=== PATIENT | male | born 1960 | race Caucasian/White ===

== ENCOUNTER 2016-09-26 21:33 | Inpatient (IN) | payer OTHER ==
[~2016-09-26] VITALS: Ht 175.3 cm; Wt 81.6 kg
--- NOTE | ~2016-09-26 | PA ---
Unit #: [id number] #: [id number] Patient: JASSON FISCHER [id number] [facility] [address] [place] [address] [id number] MR#: [id number] NAME: JASSON FISCHER. ROOM: P209 Age: 56 Sex: M Admission Date: 09/27/2016 : 1960 Date of Assessment: Attending Physician: Tan Thomas M.D. Admitting Physician: Tan Thomas M.D. Primary Care Physician: Primary Care Physician No PSYCHIATRIC ASSESSMENT INFORMANTS The patient reliability, fair informant and chart reliability, good. CHIEF COMPLAINT Suicidal ideation and suicide attempt. HISTORY OF PRESENT ILLNESS Mr. Jasson Fischer is a 56-year-old male, presented with the above-mentioned complaint. The patient presented with suicidal ideation, suicide attempt on 09/25/2016. The patient reported overdosed and medically cleared. The patient denied any homicidal ideation. Denied any psychotic symptoms. Reported abusing Dilaudid off and on from the street 8 mg IV. The patient reported opioid use, age of onset 54, mainly Dilaudid. Longest period of sobriety, none. The patient reported history of blackout, history of withdrawal symptom, and IV drug abuse. No history of any HIV or hepatitis. The patient reported withdrawal symptoms such as abdominal cramping, muscle cramping, diaphoresis, irritability, and nervousness. The patient reported suicidal ideation, sad, and depressed. The patient has 12th grade of education, lives with his , currently on fixed income. He has a history of chronic pain. Sleeping 2 hours. Suicide attempt by taking overdose. Needing inpatient admission at this time for psychiatric stabilization. PAST PSYCHIATRIC HISTORY Unremarkable for any previous treatment. FAMILY HISTORY AND SOCIAL HISTORY The patient lives with his , good support system. No history of abuse. No legal charges. MEDICAL HISTORY Remarkable for history of chronic pain. Musculoskeletal; muscle strength and tone, no atrophy or abnormal movement. Gait normal. MEDICATION HISTORY The patient is currently on baclofen, gabapentin, Percocet, and steroid injections. ALLERGIES No known drug allergies. SUBSTANCE ABUSE HISTORY Please see above. Unit #: [id number] #: [id number] Patient: JASSON FISCHER REVIEW OF SYSTEMS HEENT: Eyes, clear. Ears, nose, mouth, and throat; clear. CARDIOVASCULAR: Unremarkable. RESPIRATORY: Unremarkable. GI: Unremarkable. : Unremarkable. SKIN: Unremarkable. LYMPH NODE: Unremarkable. NEUROLOGIC: Unremarkable. ENDOCRINE: Unremarkable. HEMATOLOGIC: Unremarkable. ALLERGIC/IMMUNOLOGIC: Unremarkable. MUSCULOSKELETAL: Muscle strength and tone, no atrophy or abnormal movement. Gait normal. MENTAL STATUS EXAMINATION CONSTITUTIONAL: Measurement of vital signs; temperature 97.9, heart rate 63, respiratory rate 17, and blood pressure 119/69. Height 5 feet 9 inches and weight 180 pounds. GENERAL APPEARANCE: The patient dressed casually. The patient did not show any facial deformity. MUSCULOSKELETAL: Please see above. PSYCHIATRIC EXAMINATION Description of speech; regular rate, normal volume, normal articulation, and coherent. Description of thought process, goal directed. Description of association, intact. Description of abnormal psychotic thinking; the patient denied any hallucinations or delusions, but mood lability, suicidal ideation, and depression. Denied any homicidal ideation. Description of the patient's judgment: Concerning everyday activity, poor. Social situation, poor. Concerning psychiatric condition, poor. Complete mental examination; oriented in time, place, and person. Recent and remote memory, fair. Attention span and concentration, fair. Language, able to name object and repeat phrases. Fund of knowledge, aware of current event and passive vocabulary intact. Mood and affect, sad and dysphoric. Insight and judgment, fair to poor. ASSETS AND LIABILITIES Assets, the patient is articulate and able to take care of his ADL. Liability, history of depression and substance abuse. ADMITTING DIAGNOSES Psychiatric: Major depressive disorder, recurrent, severe, F33.2 and opioid use disorder, severe, F11.20. Secondary diagnosis: Deferred. Medical diagnosis: Chronic pain. Stressors: Psychosocial stressors. PSYCHIATRIC PLAN AND TREATMENT GOAL AND DISCHARGE PLAN 1. Advised to admit the patient on the inpatient unit. Provide safe, supportive, and structured environment. 2. Ordered labs; CBC, CMP, UA, and UDS. 3. Precaution for aggression and precaution for self-harm. Unit #: [id number] #: [id number] Patient: JASSON FISCHER 4. The patient to attend all the programing on the inpatient unit. Detox protocol and detox monitoring. Plan to consider adding Celexa 40 mg at bedtime for depression. Treatment goal to attain euthymic mood, gain insight into his problem, and learn coping skills. DISCHARGE PLAN Plan to stabilize the patient and consider followup in outpatient program. ESTIMATED LENGTH OF STAY 3 to 5 days. Dictated by... Julianne Phillips/ayan TD: 09/27/2016 16:30 JOB #: [id number] PSYCHIATRIC ASSESSMENT Page 1 of 1 X Tan Thomas MD X PSYCHIATRIC ASSESSMENT
--- NOTE | ~2016-09-26 | DS ---
Unit #: [id number] #: [id number] Patient: SHEYLA BROWN [id number] [facility] [address] [place] [address] [id number] I MR#: [id number] NAME: SHEYLA BROWN. ROOM: P209 Age: 56 Sex: M Admission Date: 09/27/2016 : 1960 Discharge Date: 09/29/2016 Attending Physician: Tan Thomas M.D. Primary Care Physician: No Primary Care Physician DISCHARGE SUMMARY REASON FOR ADMISSION Suicidal ideation, chronic pain. DIAGNOSTIC STUDIES LABORATORY DATA: Urine drug screen positive for benzodiazepine and marijuana. HOSPITAL COURSE Patient was admitted to inpatient unit on September 27 and discharged on 09/29/16. Patient was treated on the inpatient unit with chemical dependency group, (1) therapy, medication management, psychoeducation, psychotherapy, and structured milieu. Patient was responsive to treatment. Showed improvement in his mood and behavior. Subsequently, patient was discharged with a plan to follow up in outpatient program. DISCHARGE MEDICATION Cymbalta 30 mg daily for depression. DISCHARGE DIAGNOSES PSYCHIATRIC 1. Major depressive disorder, recurrent, severe, F33.2. 2. Opioid use disorder, severe, F11.20. 3. Cannabis abuse, moderate, F12.20. SECONDARY DIAGNOSIS: Deferred. MEDICAL DIAGNOSIS: Chronic pain. STRESSORS: Psychosocial stressors. INSTRUCTIONS TO PATIENT Patient to follow up in outpatient clinic as per manager social. CONDITION AT DISCHARGE Patient pleasant and cooperative. Denied any psychotic symptoms or any suicidal ideation. PROGNOSIS Guarded. DIET AND ACTIVITY Unit #: [id number] #: [id number] Patient: SHEYLA BROWN As tolerated. Dictated by... Julianne Phillips/sharon TD: 09/30/2016 14:02 JOB #: [id number] DISCHARGE SUMMARY Page 1 of 1 X Tan Thomas MD X DISCHARGE SUMMARY
--- NOTE | ~2016-09-26 | HP ---
Unit #: [id number] #: [id number] Patient: JASSON BROWN [id number] [place] [address] [id number] I MR#: [id number] NAME: JASSON BROWN. ROOM: P209 Age: 56 Sex: M Admission Date: 09/27/2016 : 1960 Attending Physician: Tan Thomas M.D. Admitting Physician: Tan Thomas M.D. Primary Care Physician: Primary Care Physician No HISTORY AND PHYSICAL HISTORY OF PRESENT ILLNESS Jasson is a 56-year-old male admitted on 09/27/2016 for suicidal ideation with attempt to jump of his 's car and attempted to overdose as well. PAST MEDICAL HISTORY Chronic pain. PAST SURGICAL HISTORY None documented. SOCIAL HISTORY Denies tobacco or alcohol use. He does report daily use of IV Dilaudid. He is currently and living with his . FAMILY HISTORY Noncontributory. REVIEW OF SYSTEMS CONSTITUTIONAL: No fever or chills. HEENT: Denies any sore throat, ear pain or runny nose. CARDIOVASCULAR: Denies chest pain, irregular heart rhythm or palpitations. CHEST: Denies shortness of breath or cough. No hemoptysis. GASTROINTESTINAL: Denies nausea, vomiting, diarrhea or chronic constipation. ENDOCRINE: Denies history of increased thirst or urination. No recent significant weight loss or gain. GENITOURINARY: Denies dysuria, frequency, or hematuria. SKIN: Denies any rashes. HEMATOLOGIC: Denies history of increased bleeding or bruising. MUSCULOSKELETAL: Denies any hot, swollen joints. No generalized muscle pain. NEUROLOGIC: Denies problems with vision or speech. No frequent, severe headaches. No numbness, tingling or weakness in any extremities. Denies loss of bladder or bowel control. CURRENT MEDICATIONS Baclofen and gabapentin. ALLERGIES No known drug allergies. Unit #: [id number] #: [id number] Patient: JASSON BROWN PHYSICAL EXAMINATION GENERAL: Alert, oriented, in no acute distress. VITAL SIGNS: Blood pressure 117/80, heart rate 69, respirations 17, temperature 97.5. HEIGHT: 5 foot 9 inches. WEIGHT: 180 pounds. SKIN: Warm and dry without rash or lesion. HEENT: Normocephalic. TMs not viewed. Oral and nasal passages clear. Conjunctivae clear. PERRLA. EOMs intact. NECK: Supple without lymphadenopathy or thyromegaly. HEART: Regular rate and rhythm without murmur. LUNGS: Clear. ABDOMEN: Soft, nontender, without masses or hepatosplenomegaly. : Not done. EXTREMITIES: No evidence of cyanosis, clubbing or edema. Moves all without focal deficit. NEUROLOGICAL: Grossly within normal limits. Cranial Nerves: II: Visual spain are intact. III, IV AND : Extraocular movements are intact. Pupils are equal, round and reactive to light. V: Facial sensation is grossly normal. VII: Facial movements and expression are normal. VIII: Auditory acuity grossly intact. IX, X: Uvula is midline. Phonation is normal. XI: Patient shrugs shoulders and turns head normally. XII: Tongue protrudes in the midline. Sensory and Motor Function: Sensory and motor sensation is grossly normal. Motor: moves all extremities well. Coordination: Gait is normal. Deep Tendon Reflexes: Intact. IMPRESSION 1. Psychiatric admission. 2. Chronic pain. RECOMMENDATIONS Psychiatric, per psychiatrist. MEDICAL: I see no contraindications to participating in facility's activities. MEDICAL PROGNOSIS Good. MEDICAL CONDITION Stable. Dictated by... Tavo Tejada/hammad TD: 09/28/2016 00:44 JOB #: [id number] Unit #: [id number] #: [id number] Patient: JASSON BROWN HISTORY AND PHYSICAL Page 1 of 1 X HOLLY HAY APRN X HISTORY AND PHYSICAL
--- NOTE | ~2016-09-26 | PN ---
Unit #: [id number] #: [id number] Patient: JASSON BROWN [id number] [facility] [address] [place] [address] [id number] I MR#: [id number] NAME: JASSON BROWN. ROOM: P209 Age: 56 Sex: M Admission Date: 09/27/2016 : 1960 Attending Physician: Tan Thomas M.D. Admitting Physician: Tan Thomas M.D. Primary Care Physician: Primary Care Physician Rosaline HERNÁNDEZ PROGRESS NOTES DATE 09/28/2016 DISCUSSION Jasson Brown is a 56-year-old male seen on 09/28/2016. The patient interviewed, chart reviewed. Obtained information from nursing staff. The patient compliant and cooperative. Mood labile. The patient reports making progress. Vital signs stable. The patient denied any thoughts of harming self or others, compliant, cooperative. Complete review of systems unremarkable. MENTAL STATUS EXAMINATION General appearance, the patient dressed casually. Attention span and concentration fair. Oriented to time, place and person. Mood and affect was sad, dysphoric, flat affect. Speech monotone. Thought process concrete. The patient denied any thoughts of harming self or others or any psychotic symptom. Recent and remote memory poor. Insight and judgement poor. DIAGNOSES 1. Mood disorder NOS 2. Opiate use disorder severe ASSESSMENT/PLAN Advise to continue with current medication and therapeutic protocol. If needed consider further adjustment of medication. Dictated by... Julianne Phillips/hammad TD: 09/28/2016 21:34 JOB #: [id number] Unit #: [id number] #: [id number] Patient: JASSON BROWN BETTY PROGRESS NOTES Page 1 of 1 X Tan Thomas MD PROGRESS NOTE
[2016-09-27 09:51] LABS: BASOPHIL% 0.2 % (0-2.5); EOSINOPHIL# 0.3 X10e3 (0-0.7); EOSINOPHIL% 2.1 % (0.0-7.0); HEMATOCRIT 47.3 % (38.0-50.0); HEMOGLOBIN 15.7 gm/dL (13.0-16.0); LYMPHOCYTE# 5.4 X10e3 (1.0-3.5); LYMPHOCYTE% 39.5 % (17.0-45.0); MEAN CELL VOLUME 88.2 FL (83-96); MEAN CORPUSCULAR HEMOGLOBIN 29.3 PG (28-34); MEAN CORPUSCULAR HGB CONC 33.2 g/dL (30-36); MEAN PLATELET VOLUME 7.6 FL (6.5-11.5); MONOCYTE# 0.9 X10e3 (0-1.0); MONOCYTE% 6.6 % (3.0-12.0); NEUTROPHIL% 51.6 % (40-75); PLATELET COUNT 288 X10e3 (140-420); RED BLOOD COUNT 5.36 X10e (3.90-5.60); RED CELL DISTRIBUTION WIDTH 14.8 % (11.0-15.5); WHITE BLOOD COUNT 13.6 X10e3 (4.0-10.5)
[2016-09-27 10:02] LABS: DIFF IND NO
[2016-09-27 10:04] LABS: BILIRUBIN,TOTAL 0.5 mg/dL (0.2-2.0); BUN/CREATININE RATIO 22.5; CALCIUM SERUM 9.2 mg/dL (8.4-10.2); CREATININE SERUM 0.8 mg/dL (0.6-1.4); GLOM FILT RATE Estimated 100.6 mL/min (>60); POTASSIUM 4.3 mmol/L (3.5-5.1); PROTEIN TOTAL SERUM 7.1 g/dL (6.0-8.3)
[2016-09-28 10:05] LABS: URINE APPEARANCE CLEAR; URINE BILIRUBIN NEG (NEG); URINE BLOOD NEG (NEG); URINE COLOR YELLOW; URINE GLUCOSE NEG (NEG); URINE KETONE NEG (NEG); URINE LEUKOCYTE ESTERASE NEG (NEG); URINE NITRATE NEG (NEG); URINE PH 6.5 (5-8); URINE PROTEIN NEG (NEG); URINE SPECIFIC GRAVITY 1.016 (1.003-1.035); URINE UROBILINOGEN 0.2 MG/DL (NEG)
[2016-09-28 10:55] LABS: AMPHETAMINE NEG (NEG); BARBITURATES NEG (NEG); BENZODIAZEPINES POS (NEG); COCAINE NEG (NEG); MARIJUANA POS (NEG); OPIATES NEG (NEG); TRICYCLIC ANTIDEPRESSANTS NEG (NEG); U METHADONE NEG (NEG)
== END 2016-09-29 11:02 | DRG 885 ==
LOC: P2S 09-27 02:37
PROVIDERS: Psychiatry & Neurology Psychiatry
PROC: HZ2ZZZZ Detoxification Services for Substance Abuse Treatment (ICD-10-PCS; principal; 2016-09-27)
DX: F33.2 Major depressive disorder, recurrent severe without psychotic features (principal); F11.20 Opioid dependence, uncomplicated; R45.851 Suicidal ideations; G89.29 Other chronic pain; F12.20 Cannabis dependence, uncomplicated
CPT/HCPCS: 80053; 80307; 81003; 85025; 86592